=== PATIENT | male | born 1945 | race African-American/Black ===

== ENCOUNTER 2020-07-26 17:50 | Inpatient (IN) | payer MEDICARE, MEDICAID ==
[~2020-07-26] VITALS: Ht 167.6 cm; Wt 63.5 kg
[~2020-07-26 17:50] MED LIST: ASPI-1497 PO; TAMS-11 MT; hydrocodone PO; saw palmetto
[2020-07-26] MEDS ORDERED: ACETAMINOPHEN 325MG TABLET PO STA (18:01)
[2020-07-26] MEDS ORDERED: DEXAMETHASONE 10 MG/ML VIAL IV ONE (18:15)
[2020-07-26] MEDS ORDERED: CEFTRIAXONE 1 G PREMIX 50 ML IV ONE (18:15)
[2020-07-26] MEDS ORDERED: AZITHROMYCIN 500 MG in DEXT 5% WATER 250 ML IV ONE (18:15)
[2020-07-26 18:28] LABS: HEMATOCRIT. 49.3 % (42.0-52.0); HEMOGLOBIN. 16.1 g/dL (14.0-18.0); MEAN CORPUSCULAR HEMOGLOBIN 30.4 pg (28.0-32.0); MEAN CORPUSCULAR VOLUME 93.3 fL (80.0-94.0); MEAN PLATELET VOLUME 8.2 fl (7.4-10.4); PLATELET 120 x1000/uL (130-400); RED BLOOD CELL COUNT 5.28 mill/uL (4.7-6.1); RED CELL DISTRIBUTION WIDTH 14.2 % (11.6-14.6)
[2020-07-26 18:32] LABS: CHLORIDE 110 mEq/L (98-107)
[2020-07-26 18:37] LABS: D-DIMER 0.81 mg/L FEU (<0.50)
[2020-07-26 18:39] LABS: CREATINE KINASE 228 IU/L (39-308)
[2020-07-26] MEDS ORDERED: SODIUM CHLORIDE 0.9% 500 ML IV ONE (18:45)
[2020-07-26 19:10] LABS: PLATELET ESTIMATE DECREASED
[2020-07-26 19:44] LABS: BG BASE EXCESS 2.8 mmol/L (-2.0-2.0); BG CARBOXYHEMOGLOBIN 0.1 % (0.5-1.5); BG DEOXYHEMOGLOBIN 3.6 % (0.0-5.0); BG FRACTION INSPIRED OXYGEN 40; BG METHEMOGLOBIN 0.3 % (0.0-1.5); BG OXYGEN SATURATION 96.4 % (92.0-98.5); BG PCO2 45.3 mmHg (35.0-45.0); BG PH 7.409 (7.350-7.450); BG PO2 90.2 mmHg (75.0-100.0); BG SAMPLE SITE RIGHT BRACHIAL; BG TOTAL HEMOGLOBIN 13.9 g/dL (12.0-18.0); BG VENT MODE NASAL CANNULA
[2020-07-26] MEDS ORDERED: SODIUM CHLORIDE 0.9% 1,000 ML IV ONE (22:15)
[2020-07-26] MEDS ORDERED: VASOPRESSIN 20 UNITS in SODIUM CHLORIDE 0.9% 100 ML IV PRN (23:00)
[2020-07-27 04:14] LABS: CLARITY URINE CLEAR (CLEAR); COLOR URINE DARK YELLOW (YELLOW); KETONES URINE NEGATIVE (NEGATIVE); LEUKOCYTE ESTERASE URINE NEGATIVE (NEGATIVE); NITRITE URINE NEGATIVE (NEGATIVE); OCCULT BLOOD URINE NEGATIVE (NEGATIVE); PH URINE 5.5 (4.5-8.0); PROTEIN URINE 2+ (NEGATIVE); SPECIFIC GRAVITY URINE 1.028 (1.005-1.030)
[2020-07-27 04:28] LABS: *BARBITURATES SCREEN URINE NEGATIVE (NEGATIVE); *BENZODIAZEPINES SCREEN URINE NEGATIVE (NEGATIVE); *COCAINE SCREEN URINE PRESUMTIVE POSITIVE (NEGATIVE); METHADONE URINE SCREEN NEGATIVE (NEGATIVE)
[2020-07-27 04:29] LABS: *AMPHETAMINES SCREEN URINE NEGATIVE (NEGATIVE); CANNABINOID URINE SCREEN NEGATIVE (NEGATIVE); OPIATES URINE SCREEN NEGATIVE (NEGATIVE); PHENCYCLIDINE URINE SCREEN NEGATIVE (NEGATIVE)
[2020-07-27] MEDS ORDERED: SODIUM POLYSTYRENE SULFONATE 15 G/60 ML BOT PO NR (12:30)
[2020-07-27] MEDS ORDERED: ONDANSETRON HCL 4MG/2ML INJ IV PRN (12:30)
[2020-07-27] MEDS ORDERED: TRAZODONE HCL 50MG TABLET PO PRN (12:30)
[2020-07-27 15:46] LABS: HEMATOCRIT. 42.4 % (42.0-52.0); HEMOGLOBIN. 13.8 g/dL (14.0-18.0); MEAN CORPUSCULAR HEMOGLOBIN 30.1 pg (28.0-32.0); MEAN CORPUSCULAR VOLUME 92.5 fL (80.0-94.0); MEAN PLATELET VOLUME 8.6 fl (7.4-10.4); PLATELET 127 x1000/uL (130-400); RED BLOOD CELL COUNT 4.59 mill/uL (4.7-6.1); RED CELL DISTRIBUTION WIDTH 14.2 % (11.6-14.6)
[2020-07-27 15:54] LABS: CHLORIDE 113 mEq/L (98-107)
[2020-07-27 16:22] LABS: PLATELET ESTIMATE NORMAL
[2020-07-27] MEDS ORDERED: HEPARIN 5000 UNITS/ML VIAL SUBCUT SCH (21:00)
[2020-07-27] MEDS: ACETAMINOPHEN 325MG TABLET PO PRN (22:09)
[2020-07-28] MEDS: ACETAMINOPHEN 325MG TABLET PO PRN (04:12)
[2020-07-28 06:41] LABS: BASOPHILS % 0.3 % (0.0-2.0); EOSINOPHILS % 0.1 % (0.0-5.0); HEMATOCRIT. 42.3 % (42.0-52.0); HEMOGLOBIN. 13.9 g/dL (14.0-18.0); LYMPHOCYTES % 9.6 % (20.0-50.0); MEAN CORPUSCULAR HEMOGLOBIN 30.2 pg (28.0-32.0); MEAN CORPUSCULAR VOLUME 91.9 fL (80.0-94.0); MEAN PLATELET VOLUME 8.7 fl (7.4-10.4); MONOCYTES % 9.2 % (2.0-8.0); NEUTROPHILS % 80.8 % (40.0-76.0); PLATELET 159 x1000/uL (130-400); RED BLOOD CELL COUNT 4.61 mill/uL (4.7-6.1); RED CELL DISTRIBUTION WIDTH 14.1 % (11.6-14.6)
[2020-07-28 06:42] LABS: CHLORIDE 114 mEq/L (98-107)
[2020-07-28] MEDS: ASPIRIN 81MG TABLET PO SCH (10:14)
[2020-07-28] MEDS: DEXAMETHASONE 4MG TABLET PO SCH (10:14)
[2020-07-28] MEDS: ZINC SULFATE 220 MG ( 50 ) CAPSULE PO SCH (10:15)
[2020-07-28] MEDS: ENOXAPARIN 40MG/0.4ML SYR SUBCUT SCH (10:15)
[2020-07-28] MEDS: ASCORBIC ACID 500 MG TABLET PO SCH ×2 (10:15→18:19)
[2020-07-28 10:34] VITALS: BP 127/54
[2020-07-28 12:00] VITALS: BP 102/54
[2020-07-28 16:00] VITALS: BP 98/68
[2020-07-28 20:00] VITALS: BP 117/67
[2020-07-29 00:05] VITALS: BP 97/52
[2020-07-29 04:00] VITALS: BP 107/64
[2020-07-29 06:09] LABS: BASOPHILS % 0.2 % (0.0-2.0); HEMATOCRIT. 43.5 % (42.0-52.0); HEMOGLOBIN. 14.3 g/dL (14.0-18.0); LYMPHOCYTES % 7.1 % (20.0-50.0); MEAN CORPUSCULAR HEMOGLOBIN 30.4 pg (28.0-32.0); MEAN CORPUSCULAR VOLUME 92.6 fL (80.0-94.0); MEAN PLATELET VOLUME 8.7 fl (7.4-10.4); MONOCYTES % 10.8 % (2.0-8.0); NEUTROPHILS % 81.9 % (40.0-76.0); PLATELET 198 x1000/uL (130-400); RED BLOOD CELL COUNT 4.69 mill/uL (4.7-6.1); RED CELL DISTRIBUTION WIDTH 14.3 % (11.6-14.6)
[2020-07-29 06:49] LABS: CHLORIDE 111 mEq/L (98-107)
[2020-07-29 08:00] VITALS: BP_SYST 114; BP_SYST 115; BP_DIAS 50; BP_DIAS 52
[2020-07-29] MEDS: DEXAMETHASONE 4MG TABLET PO SCH (08:05)
[2020-07-29] MEDS: ZINC SULFATE 220 MG ( 50 ) CAPSULE PO SCH (08:05)
[2020-07-29] MEDS: ASCORBIC ACID 500 MG TABLET PO SCH ×2 (08:05→17:56)
[2020-07-29] MEDS: ASPIRIN 81MG TABLET PO SCH (08:05)
[2020-07-29] MEDS: ENOXAPARIN 40MG/0.4ML SYR SUBCUT SCH (08:06)
[2020-07-29 12:00] VITALS: BP 112/55
[2020-07-29 16:00] VITALS: BP 132/66
[2020-07-29] MEDS ORDERED: VANCOMYCIN 1500MG in DEXTROSE 5% WATER 250ML IV SCH (16:00)
[2020-07-29] MEDS: AZITHROMYCIN 500 MG in DEXT 5% WATER 250 ML IV SCH (17:56)
[2020-07-29 20:00] VITALS: BP 121/67
[2020-07-30] VITALS: BP 118/62
[2020-07-30 04:00] VITALS: BP 133/77
[2020-07-30] MEDS ORDERED: VANCOMYCIN 1 G PREMIX 200 ML IV SCH (06:00)
[2020-07-30 08:00] VITALS: BP 125/70
[2020-07-30 08:37] LABS: HEMATOCRIT. 43.3 % (42.0-52.0); HEMOGLOBIN. 14.3 g/dL (14.0-18.0); MEAN CORPUSCULAR HEMOGLOBIN 30.5 pg (28.0-32.0); MEAN CORPUSCULAR VOLUME 91.9 fL (80.0-94.0); MEAN PLATELET VOLUME 8.6 fl (7.4-10.4); PLATELET 243 x1000/uL (130-400); RED BLOOD CELL COUNT 4.71 mill/uL (4.7-6.1); RED CELL DISTRIBUTION WIDTH 13.9 % (11.6-14.6)
[2020-07-30 09:34] LABS: CHLORIDE 111 mEq/L (98-107)
[2020-07-30] MEDS: ASPIRIN 81MG TABLET PO SCH (09:57)
[2020-07-30] MEDS: ENOXAPARIN 40MG/0.4ML SYR SUBCUT SCH (09:57)
[2020-07-30] MEDS: ZINC SULFATE 220 MG ( 50 ) CAPSULE PO SCH (09:57)
[2020-07-30] MEDS: DEXAMETHASONE 4MG TABLET PO SCH (09:57)
[2020-07-30] MEDS: ASCORBIC ACID 500 MG TABLET PO SCH ×2 (13:09→17:46)
[2020-07-30] MEDS: VANCOMYCIN 1 G PREMIX 200 ML IV SCH (14:27)
[2020-07-30] MEDS: AZITHROMYCIN 500 MG in DEXT 5% WATER 250 ML IV SCH (14:38)
[2020-07-30 15:10] LABS: PLATELET ESTIMATE NORMAL
[2020-07-30 16:00] VITALS: BP 131/75
[2020-07-30 20:00] VITALS: BP 119/59
[2020-07-31] VITALS: BP 115/60
[2020-07-31] MEDS: VANCOMYCIN 1 G PREMIX 200 ML IV SCH ×3 (01:26→21:54)
[2020-07-31 04:00] VITALS: BP 125/62
[2020-07-31 08:00] VITALS: BP 100/60
[2020-07-31 08:42] LABS: BASOPHILS % 0.3 % (0.0-2.0); HEMATOCRIT. 43.6 % (42.0-52.0); HEMOGLOBIN. 14.3 g/dL (14.0-18.0); LYMPHOCYTES % 16.3 % (20.0-50.0); MEAN CORPUSCULAR VOLUME 91.4 fL (80.0-94.0); MEAN PLATELET VOLUME 8.3 fl (7.4-10.4); MONOCYTES % 11.5 % (2.0-8.0); NEUTROPHILS % 71.9 % (40.0-76.0); PLATELET 292 x1000/uL (130-400); RED BLOOD CELL COUNT 4.77 mill/uL (4.7-6.1)
[2020-07-31 08:48] LABS: CHLORIDE 110 mEq/L (98-107)
[2020-07-31] MEDS: ASPIRIN 81MG TABLET PO SCH (09:59)
[2020-07-31] MEDS: DEXAMETHASONE 4MG TABLET PO SCH (10:00)
[2020-07-31] MEDS: ASCORBIC ACID 500 MG TABLET PO SCH ×2 (10:00→17:41)
[2020-07-31] MEDS: ZINC SULFATE 220 MG ( 50 ) CAPSULE PO SCH (10:00)
[2020-07-31] MEDS: ENOXAPARIN 40MG/0.4ML SYR SUBCUT SCH (10:01)
[2020-07-31 12:00] VITALS: BP 92/50
[2020-07-31 16:00] VITALS: BP 113/58
[2020-07-31] MEDS: AZITHROMYCIN 500 MG in DEXT 5% WATER 250 ML IV SCH (17:41)
[2020-07-31 20:00] VITALS: BP 105/62
[2020-08-01 00:40] VITALS: BP 126/66
[2020-08-01 04:00] VITALS: BP 122/75
[2020-08-01] MEDS: VANCOMYCIN 1 G PREMIX 200 ML IV SCH ×3 (05:44→21:22)
[2020-08-01 08:00] VITALS: BP 113/54
[2020-08-01] MEDS: ENOXAPARIN 40MG/0.4ML SYR SUBCUT SCH (09:00)
[2020-08-01] MEDS: DEXAMETHASONE 4MG TABLET PO SCH (09:00)
[2020-08-01] MEDS: ASPIRIN 81MG TABLET PO SCH (09:00)
[2020-08-01] MEDS: ZINC SULFATE 220 MG ( 50 ) CAPSULE PO SCH (09:00)
[2020-08-01 10:23] LABS: CHLORIDE 109 mEq/L (98-107)
[2020-08-01 10:39] LABS: BASOPHILS % 0.8 % (0.0-2.0); EOSINOPHILS % 0.1 % (0.0-5.0); LYMPHOCYTES % 19.4 % (20.0-50.0); MEAN CORPUSCULAR HEMOGLOBIN 29.7 pg (28.0-32.0); MEAN CORPUSCULAR VOLUME 92.8 fL (80.0-94.0); MEAN PLATELET VOLUME 8.6 fl (7.4-10.4); MONOCYTES % 8.9 % (2.0-8.0); NEUTROPHILS % 70.8 % (40.0-76.0); PLATELET 242 x1000/uL (130-400); RED BLOOD CELL COUNT 5.39 mill/uL (4.7-6.1); RED CELL DISTRIBUTION WIDTH 14.1 % (11.6-14.6)
[2020-08-01 12:00] VITALS: BP 102/55
[2020-08-01] MEDS: ASCORBIC ACID 500 MG TABLET PO SCH ×2 (13:47→17:32)
[2020-08-01 16:00] VITALS: BP 94/53
[2020-08-01] MEDS: AZITHROMYCIN 500 MG in DEXT 5% WATER 250 ML IV SCH (17:32)
[2020-08-01 20:00] VITALS: BP 91/45
[2020-08-02] VITALS: BP 143/84
[2020-08-02 04:00] VITALS: BP 104/52
[2020-08-02] MEDS: VANCOMYCIN 1 G PREMIX 200 ML IV SCH ×3 (05:08→22:08)
[2020-08-02 08:00] VITALS: BP 101/52
[2020-08-02] MEDS: ASCORBIC ACID 500 MG TABLET PO SCH ×2 (08:36→17:08)
[2020-08-02] MEDS: ASPIRIN 81MG TABLET PO SCH (08:36)
[2020-08-02] MEDS: ZINC SULFATE 220 MG ( 50 ) CAPSULE PO SCH (08:37)
[2020-08-02] MEDS: ENOXAPARIN 40MG/0.4ML SYR SUBCUT SCH (08:37)
[2020-08-02] MEDS: DEXAMETHASONE 4MG TABLET PO SCH (08:37)
[2020-08-02 12:00] VITALS: BP 97/52
[2020-08-02 16:00] VITALS: BP 100/54
[2020-08-02] MEDS: AZITHROMYCIN 500 MG in DEXT 5% WATER 250 ML IV SCH (17:08)
[2020-08-02 20:00] VITALS: BP_SYST 122; BP_SYST 132; BP_DIAS 56; BP_DIAS 68
[2020-08-03] VITALS: BP 106/54
[2020-08-03 04:00] VITALS: BP 113/73
[2020-08-03] MEDS: VANCOMYCIN 1 G PREMIX 200 ML IV SCH ×3 (05:11→21:32)
[2020-08-03 08:00] VITALS: BP 117/59
[2020-08-03] MEDS: ASCORBIC ACID 500 MG TABLET PO SCH (09:04)
[2020-08-03] MEDS: ENOXAPARIN 40MG/0.4ML SYR SUBCUT SCH (09:04)
[2020-08-03] MEDS: ASPIRIN 81MG TABLET PO SCH (09:04)
[2020-08-03] MEDS: DEXAMETHASONE 4MG TABLET PO SCH (09:04)
[2020-08-03] MEDS: ZINC SULFATE 220 MG ( 50 ) CAPSULE PO SCH (09:04)
[2020-08-03 16:00] VITALS: BP 123/57
[2020-08-03] MEDS: ACETAMINOPHEN 325MG TABLET PO PRN (16:46)
[2020-08-03 20:00] VITALS: BP 97/52
[2020-08-04] VITALS: BP 98/50
[2020-08-04 04:00] VITALS: BP 100/44
[2020-08-04] MEDS: VANCOMYCIN 1 G PREMIX 200 ML IV SCH ×3 (06:00→23:14)
[2020-08-04 08:00] VITALS: BP 103/51
[2020-08-04] MEDS: ENOXAPARIN 40MG/0.4ML SYR SUBCUT SCH (08:34)
[2020-08-04] MEDS: DEXAMETHASONE 4MG TABLET PO SCH (08:34)
[2020-08-04] MEDS: ZINC SULFATE 220 MG ( 50 ) CAPSULE PO SCH (08:34)
[2020-08-04] MEDS: ASPIRIN 81MG TABLET PO SCH (08:34)
[2020-08-04 12:00] VITALS: BP 96/51
[2020-08-04 16:00] VITALS: BP 101/62
[2020-08-04 20:00] VITALS: BP 117/68
[2020-08-05] VITALS: BP 123/60
[2020-08-05 04:00] VITALS: BP 112/65
[2020-08-05 08:00] VITALS: BP 109/53
[2020-08-05] MEDS: ZINC SULFATE 220 MG ( 50 ) CAPSULE PO SCH (08:18)
[2020-08-05] MEDS: ASPIRIN 81MG TABLET PO SCH (08:18)
[2020-08-05] MEDS: DEXAMETHASONE 4MG TABLET PO SCH (08:18)
[2020-08-05] MEDS: ENOXAPARIN 40MG/0.4ML SYR SUBCUT SCH (08:18)
[2020-08-05 11:27] LABS: CHLORIDE 105 mEq/L (98-107)
[2020-08-05 12:00] VITALS: BP 112/60
[2020-08-05 12:16] VITALS: BP 112/60
[2020-08-05] MEDS ORDERED: VANCOMYCIN 1 G PREMIX 200 ML IV SCH (20:00)
== END 2020-08-05 17:25 | disposition home or self-care (01) | DRG 871 ==
LOC: ER 17:50 → MICUSO 19:07 → EDBEDREQSVC 19:10 → EDBEDREQ 19:10 → 7EST 07-27 23:14 → 7WST 07-28 05:08 → 7EST 07-28 05:11
PROVIDERS: ADMIT Internal Medicine; ATTEND Internal Medicine
DX: A41.89 Other specified sepsis (principal); U07.1 COVID-19; J96.01 Acute respiratory failure with hypoxia; J12.82 Pneumonia due to coronavirus disease 2019; E44.0 Moderate protein-calorie malnutrition; E87.2 Acidosis; J44.0 Chronic obstructive pulmonary disease with (acute) lower respiratory infection; E87.5 Hyperkalemia; F17.210 Nicotine dependence, cigarettes, uncomplicated; N40.0 Benign prostatic hyperplasia without lower urinary tract symptoms; B95.62 Methicillin resistant Staphylococcus aureus infection as the cause of diseases classified elsewhere; F14.11 Cocaine abuse, in remission; Z59.0 Homelessness; Z76.5 Malingerer [conscious simulation]; Z79.899 Other long term (current) drug therapy; Z68.22 Body mass index [BMI] 22.0-22.9, adult; Z79.82 Long term (current) use of aspirin
CPT/HCPCS: 36415; 36600; 71045; 80048; 80053; 80202; 80305; 80320; 81003; 82375; 82550; 82728; 82805; 83605; 83615; 83735; 83880; 84145; 84484; 85025; 85379; 85384; 86140; 87186; 87635; 93005; 99291; J0456; J0696; J1100; J1644; J1650; J3370; J7030; J7040; J7060; J8540; G0480

== ENCOUNTER 2022-05-30 10:39 | Inpatient (IN) | payer MEDICARE, MEDICAID ==
[~2022-05-30] VITALS: Ht 162.6 cm; Wt 54.0 kg
[2022-05-30 12:12] LABS: BASOPHILS % 1.1 % (0.0-2.0); EOSINOPHILS % 3.6 % (0.0-5.0); HEMATOCRIT. 47.1 % (42.0-52.0); HEMOGLOBIN. 15.6 g/dL (14.0-18.0); LYMPHOCYTES % 14.3 % (20.0-50.0); MEAN CORPUSCULAR HEMOGLOBIN 30.6 pg (28.0-32.0); MEAN CORPUSCULAR VOLUME 92.5 fL (80.0-94.0); MEAN PLATELET VOLUME 7.5 fl (7.4-10.4); MONOCYTES % 12.2 % (2.0-8.0); NEUTROPHILS % 68.8 % (40.0-76.0); PLATELET 283 x1000/uL (130-400); RED BLOOD CELL COUNT 5.09 mill/uL (4.7-6.1); RED CELL DISTRIBUTION WIDTH 13.8 % (11.6-14.6)
[2022-05-30 12:17] LABS: BG BASE EXCESS -2.5 mmol/L (-2.0-2.0); BG CARBOXYHEMOGLOBIN 1.5 % (0.5-1.5); BG DEOXYHEMOGLOBIN 4.5 % (0.0-5.0); BG FRACTION INSPIRED OXYGEN 28; BG HCO3 ACT 24.2 mmol/L (22.0-26.0); BG METHEMOGLOBIN 0.3 % (0.0-1.5); BG OXYGEN SATURATION 95.4 % (92.0-98.5); BG OXYHEMOGLOBIN 93.7 % (94.0-97.0); BG PH 7.311 (7.350-7.450); BG PO2 79.6 mmHg (75.0-100.0); BG SAMPLE SITE RIGHT BRACHIAL; BG TOTAL HEMOGLOBIN 14.9 g/dL (12.0-18.0); BG VENT MODE NASAL CANNULA
[2022-05-30 12:30] LABS: CHLORIDE 108 mEq/L (98-107)
[2022-05-30] MEDS ORDERED: METHYLPREDNISOLONE SOD SUCC 125 MG/2 ML VIAL IV STA (12:57)
[2022-05-30] MEDS ORDERED: IPRATROPIUM BROMIDE (0.02%) 0.5MG/2.5ML NEB HHN STA (12:57)
[2022-05-30] MEDS ORDERED: ALBUTEROL (0.083%) 2.5MG/3ML NEB HHN STA (12:57)
[2022-05-30] MEDS ORDERED: IPRATROPIUM/ALBUTEROL 0.5-3(2.5)MG/3ML NEB HHN SCH (13:45)
[2022-05-30] MEDS ORDERED: IPRATROPIUM/ALBUTEROL 0.5-3(2.5)MG/3ML NEB HHN PRN ×2 (13:45)
[2022-05-30] MEDS ORDERED: CEFTRIAXONE 1 G PREMIX 50 ML IV SCH ×2 (13:45)
[2022-05-30] MEDS ORDERED: GUAIFENESIN 200MG/10ML SUGAR FREE UDC PO PRN ×2 (13:45)
[2022-05-30] MEDS ORDERED: CLONIDINE 0.1MG TABLET PO PRN (13:45)
[2022-05-30] MEDS ORDERED: ONDANSETRON HCL 4MG/2ML INJ IV PRN ×2 (13:45)
[2022-05-30] MEDS ORDERED: AZITHROMYCIN 500 MG in DEXT 5% WATER 250 ML IV SCH ×2 (13:45→15:30)
[2022-05-30] MEDS ORDERED: ENOXAPARIN 40MG/0.4ML SYR SUBCUT SCH (13:45)
[2022-05-30] MEDS ORDERED: AMLODIPINE 10MG TABLET PO SCH (13:45)
[2022-05-30] MEDS ORDERED: METHYLPREDNISOLONE SOD SUCC 125 MG/2 ML VIAL IV SCH (13:45)
[2022-05-30] MEDS ORDERED: TRAMADOL 50MG TABLET PO PRN (13:45)
[2022-05-30] MEDS ORDERED: DOCUSATE SODIUM 100MG CAPSULE PO PRN ×2 (13:45)
[2022-05-30] MEDS ORDERED: MAGNESIUM/ALUMINUM HYDROXIDE/SIMETHICONE 30ML UDC PO PRN ×2 (13:45)
[2022-05-30] MEDS ORDERED: ACETAMINOPHEN 325MG TABLET PO PRN ×2 (13:45)
[2022-05-30] MEDS: METHYLPREDNISOLONE SOD SUCC 125 MG/2 ML VIAL IV SCH ×2 (14:20→21:51)
[2022-05-30 14:43] VITALS: BP 126/60
[2022-05-30] MEDS: AMLODIPINE 10MG TABLET PO SCH (15:34)
[2022-05-30] MEDS: TAMSULOSIN HCL 0.4MG SR CAPSULE PO SCH (15:34)
[2022-05-30] MEDS: ENOXAPARIN 40MG/0.4ML SYR SUBCUT SCH (15:35)
[2022-05-30] MEDS: IPRATROPIUM/ALBUTEROL 0.5-3(2.5)MG/3ML NEB HHN SCH ×2 (15:59→21:05)
[2022-05-30 16:00] VITALS: BP 126/60
[2022-05-30] MEDS ORDERED: INFLUENZA VACCINE 05/PF 0.5 ML SYRINGE IM ONE (16:30)
[2022-05-30] MEDS ORDERED: PNEUMOCOCCAL 23-VAL P-SAC VAC 0.5 ML IM ONE (16:30)
[2022-05-30] MEDS: TRAMADOL 50MG TABLET PO PRN (16:57)
[2022-05-30] MEDS ORDERED: NITROGLYCERIN 0.4MG TABLET SL SL PRN (17:00)
[2022-05-30] MEDS: CEFTRIAXONE 1,000 MG in DEXTROSE 5% WATER 50 ML IV SCH (18:05)
[2022-05-30] MEDS: AZITHROMYCIN 500 MG in DEXT 5% WATER 250 ML IV SCH (18:05)
[2022-05-30 20:00] VITALS: BP 103/48
[2022-05-31] VITALS: BP 115/54
[2022-05-31] MEDS: IPRATROPIUM/ALBUTEROL 0.5-3(2.5)MG/3ML NEB HHN SCH ×4 (01:55→21:05)
[2022-05-31] MEDS: METHYLPREDNISOLONE SOD SUCC 125 MG/2 ML VIAL IV SCH ×3 (02:16→17:19)
[2022-05-31 04:00] VITALS: BP 111/56
[2022-05-31 07:56] LABS: HEMATOCRIT. 40.1 % (42.0-52.0); HEMOGLOBIN. 13.3 g/dL (14.0-18.0); MEAN CORPUSCULAR HEMOGLOBIN 30.6 pg (28.0-32.0); MEAN CORPUSCULAR VOLUME 92.1 fL (80.0-94.0); MEAN PLATELET VOLUME 8.2 fl (7.4-10.4); PLATELET 269 x1000/uL (130-400); RED BLOOD CELL COUNT 4.35 mill/uL (4.7-6.1); RED CELL DISTRIBUTION WIDTH 13.6 % (11.6-14.6)
[2022-05-31 08:00] VITALS: BP 113/61
[2022-05-31 08:46] LABS: CHLORIDE 108 mEq/L (98-107)
[2022-05-31 08:58] LABS: HDL CHOLESTEROL 57 mg/dL (40-59); LDL CHOLESTEROL 78 mg/dL (5-100)
[2022-05-31] MEDS: AMLODIPINE 10MG TABLET PO SCH (09:58)
[2022-05-31] MEDS: TAMSULOSIN HCL 0.4MG SR CAPSULE PO SCH (09:58)
[2022-05-31] MEDS: ASPIRIN 81MG EC TABLET PO SCH (09:58)
[2022-05-31 10:32] LABS: BG BASE EXCESS 0.6 mmol/L (-2.0-2.0); BG CARBOXYHEMOGLOBIN 0.3 % (0.5-1.5); BG DEOXYHEMOGLOBIN 12.8 % (0.0-5.0); BG FRACTION INSPIRED OXYGEN 21; BG METHEMOGLOBIN 0.3 % (0.0-1.5); BG OXYGEN SATURATION 87.1 % (92.0-98.5); BG OXYHEMOGLOBIN 86.6 % (94.0-97.0); BG PCO2 50.3 mmHg (35.0-45.0); BG PH 7.348 (7.350-7.450); BG PO2 51.8 mmHg (75.0-100.0); BG SAMPLE SITE RIGHT RADIAL; BG TOTAL HEMOGLOBIN 14.6 g/dL (12.0-18.0); BG VENT MODE ROOM AIR
[2022-05-31 12:00] VITALS: BP 122/64
[2022-05-31] MEDS: ENOXAPARIN 40MG/0.4ML SYR SUBCUT SCH (12:46)
[2022-05-31 16:00] VITALS: BP 125/69
[2022-05-31] MEDS: AZITHROMYCIN 500 MG in DEXT 5% WATER 250 ML IV SCH (17:19)
[2022-05-31] MEDS: CEFTRIAXONE 1,000 MG in DEXTROSE 5% WATER 50 ML IV SCH (17:20)
[2022-05-31 20:00] VITALS: BP 105/54
[2022-05-31 21:26] LABS: PLATELET ESTIMATE NORMAL
[2022-06-01] VITALS: BP 116/55
[2022-06-01] MEDS: IPRATROPIUM/ALBUTEROL 0.5-3(2.5)MG/3ML NEB HHN SCH ×4 (01:46→21:00)
[2022-06-01 04:00] VITALS: BP 120/66
[2022-06-01] MEDS: METHYLPREDNISOLONE SOD SUCC 125 MG/2 ML VIAL IV SCH ×2 (05:35→19:00)
[2022-06-01 08:00] VITALS: BP 123/89
[2022-06-01] MEDS: ASPIRIN 81MG EC TABLET PO SCH (10:00)
[2022-06-01] MEDS: TRAMADOL 50MG TABLET PO PRN (10:01)
[2022-06-01] MEDS: TAMSULOSIN HCL 0.4MG SR CAPSULE PO SCH (10:02)
[2022-06-01] MEDS: AMLODIPINE 10MG TABLET PO SCH (10:02)
[2022-06-01 12:00] VITALS: BP 119/61
[2022-06-01] MEDS: ENOXAPARIN 40MG/0.4ML SYR SUBCUT SCH (13:45)
[2022-06-01 16:00] VITALS: BP 111/53
[2022-06-01] MEDS: CEFTRIAXONE 1,000 MG in DEXTROSE 5% WATER 50 ML IV SCH (19:03)
[2022-06-01] MEDS: AZITHROMYCIN 500 MG in DEXT 5% WATER 250 ML IV SCH (19:04)
[2022-06-01 20:00] VITALS: BP 100/51
[2022-06-02] VITALS: BP 107/53
[2022-06-02] MEDS: IPRATROPIUM/ALBUTEROL 0.5-3(2.5)MG/3ML NEB HHN SCH ×3 (02:03→14:00)
[2022-06-02 04:00] VITALS: BP 116/42
[2022-06-02] MEDS: METHYLPREDNISOLONE SOD SUCC 125 MG/2 ML VIAL IV SCH (05:01)
[2022-06-02] MEDS: AMLODIPINE 10MG TABLET PO SCH (09:00)
[2022-06-02] MEDS: ASPIRIN 81MG EC TABLET PO SCH (10:27)
[2022-06-02 12:00] VITALS: BP 129/52
[2022-06-02] MEDS: ENOXAPARIN 40MG/0.4ML SYR SUBCUT SCH (13:45)
[2022-06-02 16:00] VITALS: BP 138/59
[2022-06-02] MEDS ORDERED: NITROGLYCERIN 0.4MG TABLET SL SL PRN (16:45)
[2022-06-02] MEDS: AZITHROMYCIN 500 MG in DEXT 5% WATER 250 ML IV SCH (18:00)
[2022-06-02] MEDS: METHYLPREDNISOLONE SOD SUCC 40 MG/ML VIAL IV SCH (19:13)
[2022-06-02] MEDS: CEFTRIAXONE 1,000 MG in DEXTROSE 5% WATER 50 ML IV SCH (19:21)
[2022-06-02 20:00] VITALS: BP 143/66
[2022-06-03] VITALS: BP 131/69
[2022-06-03] MEDS: TAMSULOSIN HCL 0.4MG SR CAPSULE PO SCH (01:30)
[2022-06-03 04:00] VITALS: BP 131/84
[2022-06-03 08:00] VITALS: BP 127/66
[2022-06-03] MEDS: IPRATROPIUM/ALBUTEROL 0.5-3(2.5)MG/3ML NEB HHN SCH ×3 (08:55→21:23)
[2022-06-03] MEDS ORDERED: TAMSULOSIN HCL 0.4MG SR CAPSULE PO SCH (09:00)
[2022-06-03] MEDS: ASPIRIN 81MG EC TABLET PO SCH (10:34)
[2022-06-03] MEDS: AMLODIPINE 10MG TABLET PO SCH (10:35)
[2022-06-03] MEDS: METHYLPREDNISOLONE SOD SUCC 40 MG/ML VIAL IV SCH (10:58)
[2022-06-03] MEDS: AZITHROMYCIN 500 MG in DEXT 5% WATER 250 ML IV SCH (18:49)
[2022-06-03] MEDS: CEFTRIAXONE 1,000 MG in DEXTROSE 5% WATER 50 ML IV SCH (18:50)
[2022-06-03 20:00] VITALS: BP 122/64
[2022-06-03 21:39] LABS: CLARITY URINE CLEAR (CLEAR); COLOR URINE YELLOW (YELLOW); KETONES URINE NEGATIVE (NEGATIVE); LEUKOCYTE ESTERASE URINE NEGATIVE (NEGATIVE); NITRITE URINE NEGATIVE (NEGATIVE); OCCULT BLOOD URINE 3+ (NEGATIVE); PH URINE 6.5 (4.5-8.0); PROTEIN URINE NEGATIVE (NEGATIVE); SPECIFIC GRAVITY URINE 1.018 (1.005-1.030); UROBILINOGEN URINE 0.2 E.U./dL (0.2-1.0)
[2022-06-04] VITALS: BP 131/72
[2022-06-04] MEDS: IPRATROPIUM/ALBUTEROL 0.5-3(2.5)MG/3ML NEB HHN SCH ×4 (01:43→20:19)
[2022-06-04 04:00] VITALS: BP 122/62
[2022-06-04 08:00] VITALS: BP 122/62
[2022-06-04] MEDS: ASPIRIN 81MG EC TABLET PO SCH (08:31)
[2022-06-04] MEDS: METHYLPREDNISOLONE SOD SUCC 40 MG/ML VIAL IV SCH (08:31)
[2022-06-04] MEDS: TAMSULOSIN HCL 0.4MG SR CAPSULE PO SCH (08:31)
[2022-06-04] MEDS: AMLODIPINE 10MG TABLET PO SCH ×2 (08:33→08:36)
[2022-06-04 12:00] VITALS: BP 96/41
[2022-06-04] MEDS: ENOXAPARIN 40MG/0.4ML SYR SUBCUT SCH ×2 (13:45→18:33)
[2022-06-04 16:00] VITALS: BP 108/57
[2022-06-04 20:00] VITALS: BP 111/53
[2022-06-05] VITALS (7 sets, daily range): BP systolic 106–160; BP diastolic 49–77
[2022-06-05] MEDS: IPRATROPIUM/ALBUTEROL 0.5-3(2.5)MG/3ML NEB HHN SCH ×4 (01:45→21:12)
[2022-06-05] MEDS: AMLODIPINE 10MG TABLET PO SCH (09:00)
[2022-06-05] MEDS: TAMSULOSIN HCL 0.4MG SR CAPSULE PO SCH (09:40)
[2022-06-05] MEDS: METHYLPREDNISOLONE SOD SUCC 40 MG/ML VIAL IV SCH (09:40)
[2022-06-05] MEDS: ASPIRIN 81MG EC TABLET PO SCH (09:40)
[2022-06-05] MEDS: ENOXAPARIN 40MG/0.4ML SYR SUBCUT SCH (13:42)
[2022-06-06] VITALS: BP 113/56
[2022-06-06] MEDS: IPRATROPIUM/ALBUTEROL 0.5-3(2.5)MG/3ML NEB HHN SCH ×2 (01:12→08:30)
[2022-06-06 04:00] VITALS: BP 112/59
[2022-06-06] MEDS: TAMSULOSIN HCL 0.4MG SR CAPSULE PO SCH (08:25)
[2022-06-06] MEDS: METHYLPREDNISOLONE SOD SUCC 40 MG/ML VIAL IV SCH (08:25)
[2022-06-06] MEDS: ASPIRIN 81MG EC TABLET PO SCH (08:25)
[2022-06-06] MEDS: AMLODIPINE 10MG TABLET PO SCH ×2 (08:26→08:38)
== END 2022-06-06 11:51 | DRG 189 ==
LOC: ER 10:39 → EDBEDREQ 12:12 → 7EST 13:25 → EDBEDREQTM 13:28 → EDBEDREQ 13:28 → ENRESERV 13:34 → 6EST 06-04 12:09
PROVIDERS: ADMIT Hospitalist; ATTEND Hospitalist
DX: J96.21 Acute and chronic respiratory failure with hypoxia (principal); J44.1 Chronic obstructive pulmonary disease with (acute) exacerbation; J96.22 Acute and chronic respiratory failure with hypercapnia; I20.9 Angina pectoris, unspecified; Z20.822 Contact with and (suspected) exposure to COVID-19; I10 Essential (primary) hypertension; N40.1 Benign prostatic hyperplasia with lower urinary tract symptoms; R33.8 Other retention of urine; Z87.891 Personal history of nicotine dependence; Z87.01 Personal history of pneumonia (recurrent); Z86.16 Personal history of COVID-19
CPT/HCPCS: 36415; 36600; 71045; 80053; 80061; 81003; 82375; 82805; 83880; 84153; 84484; 85025; 85379; 87426; 90686; 90732; 93005; 93970; 94640; 97162; 97530; 99285; C9803; J0456; J0696; J1650; J2920; J2930; J7060; G0103

== ENCOUNTER 2025-03-20 18:21 | Emergency (ER) | payer MEDICAID ==
[~2025-03-20] VITALS: Ht 162.6 cm; Wt 62.0 kg
[~2025-03-20 18:21] MED LIST changes: -TAMS-11 MT; +TAMS-54 MT
[2025-03-20 18:23] VITALS: O2SAT 95
[2025-03-20 20:23] VITALS: TEMP 36.6
[2025-03-20 21:35] VITALS: BP 154/76; PULSE 91; RESP 15; O2SAT 97
== END 2025-03-20 21:40 | disposition home or self-care (01) ==
LOC: ER 18:21
DX: R06.02 Shortness of breath (principal); J44.9 Chronic obstructive pulmonary disease, unspecified; F14.90 Cocaine use, unspecified, uncomplicated; N40.0 Benign prostatic hyperplasia without lower urinary tract symptoms; Z79.82 Long term (current) use of aspirin; Z99.81 Dependence on supplemental oxygen; Z87.01 Personal history of pneumonia (recurrent); Z79.899 Other long term (current) drug therapy
CPT/HCPCS: 99283